=== PATIENT | female | born 1975 | race Caucasian/White ===

== ENCOUNTER 2021-06-10 20:52 | Emergency (ER) | payer OTHER, SELFPAY ==
--- NOTE | ~2021-06-10 | XR_ITS ---
EXAMINATION: XR CHEST CLINICAL INFORMATION: Shortness of breath COMPARISON: None TECHNIQUE: Frontal view of the chest was obtained. FINDINGS: Low lung volumes and bilateral perihilar streaky opacities.. No pleural effusion. No pneumothorax. Cardiomediastinal silhouette and pulmonary vascularity are within normal limits. No acute osseous abnormalities. XR/XR chest 1V IMPRESSION: Bilateral parahilar streaky opacities could represent an atypical pneumonitis
[2021-06-10 21:02] VITALS: PULSE 112; RESP 24; O2SAT 94; BMI 29.9
--- NOTE | 2021-06-10 21:02 | ED.ASTHMA ---
HPI - Asthma General Chief Complaint: Asthma Stated Complaint: Difficulty breathing Source: patient Mode of arrival: ambulatory Limitations: no limitations History of Present Illness HPI Narrative: 46-year-old female presents for asthma exacerbation. MD complaint: asthma attack Onset (ago): hour(s) (Within the hour of arrival) Severity: moderate Context: exercise Associated symptoms: dry cough and chest pain Asthma History: childhood onset Treatments Prior to Arrival: inhaled bronchodilator Related Data Current Asthma Therapy: inhaled bronchodilator Previous Rx's Medication Instructions Recorded azithromycin 250 mg tablet 250 mg PO DAILY 4 Days #4 tab 06/10/21 codeine 10 mg-guaifenesin 200 mg/5 10 ml PO Q4-6H PRN #473 ml 06/10/21 mL oral liquid Allergies Allergy/AdvReac Type Severity Reaction Status Date / Time No Known Allergies Allergy Unknown Unverified 03/23/20 15:49 Review of Systems Review of Systems: Constitutional: No Fever, No Chills ENT/Mouth: No Hoarseness, No sore throat, No Rhinorrhea Eyes: No Redness, No Discharge, No Vision Changes Cardiovascular: Positive Chest Pain, positive SOB, positive Dyspnea on Exertion, No Edema Respiratory: positive Cough, No Sputum, positive Wheezing, Gastrointestinal: No Nausea, No Vomiting, No Diarrhea, No abdominal Pain Genitourinary: No Dysuria, No Hematuria Musculoskeletal: No joint pain, No Myalgias Skin: No rash Neuro: No Weakness, No Numbness, No Headache Psych: No anxiety, depression Heme/Lymph: No Bruising, No Bleeding Endocrine: No Polyuria, No Polydipsia Yes all other systems are reviewed and are negative [facility] Past Medical History Attestation statement: The following information was validated with the patient. Source: old records reviewed Social History Social History Advance Directives: No Advance Directives Information Provided: Yes Physical Exam Vital Signs: Vital Signs: Last Vital Signs Pulse 117 H 06/10/21 23:28 Resp 21 H 06/10/21 23:28 BP 148/86 H 06/10/21 23:28 Pulse Ox 99 06/10/21 23:28 BMI result Body Mass Index 29.9 Appearance: Alert. Oriented X3. Moderate distress. Eyes: Pupils equal, round and reactive to light. ENT: Pharynx normal. Neck: Normal inspection. Neck supple. CVS: Tachycardic heart rate and rhythm. Pulses normal. Respiratory: Moderate respiratory distress tachypneic at 24 breaths per minute decreased lung sounds inspiratory and expiratory wheezing. Abdomen: Soft and nontender. Skin: Skin warm and dry. Normal skin color. Normal skin turgor. Extremities: No lower extremity edema. Gait well-balanced well coordinated. Neuro: No motor deficit. No sensory deficit. Cranial nerves 2-12 intact. Course Course Course Narrative: 46-year-old female presents with acute asthma exacerbation. Was dancing and drinking some alcohol when asthma attack started. Patient is unable to complete sentences, is an orthoptic position and has inspiratory and expiratory wheezing with poor air flow. Respiratory is at bedside order for magnesium, prednisone, and hour long albuterol neb completed. 11:05 p.m. Xopenex ordered for continued chest tightness. O2 sat 100%. RR 18-20. Patient able to complete sentences. 11:41 p.m. patient condition has improved. Plan of care is to discharge home with prednisone. Patient has pulmonology appointment on June 15. Patient verbalized understanding of and agrees to plan of care discharge home. MDM - Asthma Differential Diagnosis Differential diagnosis: Likely Acute exacerbation and Pneumonia Medical Records Attestation: I reviewed the patient's medical records. Lab Data Attestation: I reviewed the patient's lab results. Labs: Lab Results 06/10/21 Range/Units 21:32 Influenza Type A (PCR) NEGATIVE (Negative) Influenza Type B (PCR) NEGATIVE (Negative) RSV RNA Qual (PCR) NEGATIVE (Negative) SARS-CoV-2 RNA (RT-PCR) NEGATIVE (Negative) Imaging Data Chest x-ray: Attestation: I personally reviewed and interpreted this imaging study as follows: Radiologist's impression: EXAMINATION: XR CHEST CLINICAL INFORMATION: Shortness of breath COMPARISON: None TECHNIQUE: Frontal view of the chest was obtained. FINDINGS: Low lung volumes and bilateral perihilar streaky opacities.. No pleural effusion. No pneumothorax.? Cardiomediastinal silhouette and pulmonary vascularity are within normal limits. No acute osseous abnormalities. XR/XR chest 1V IMPRESSION: Bilateral parahilar streaky opacities could represent an atypical pneumonitis ECG Data Attestation: I personally reviewed and interpreted this ECG as follows: ECG interpretation date: 06/10/21 ECG interpretation time: :27 Interpretation: Vent. Rate : 112 BPM ? ? Atrial Rate : 112 BPM ?? P-R Int : 166 ms? QRS Dur : 084 ms ? ? QT Int : 350 ms ? ? ? P-R-T Axes : 049 -01 003 degrees ?? QTc Int : 477 ms ? Sinus tachycardia Minimal voltage criteria for LVH, may be normal variant ( R in aVL ) Nonspecific T wave abnormality Abnormal ECG No previous ECGs available Critical Care Time Critical Care Time Critical Care Time: Yes Total Critical Care Time: 45 Attestation: I have personally provided critical care time exclusive of time spent on separately billable procedures. Time includes review of laboratory data, radiology results, discussion with consultants, and monitoring for potential decompensation. Interventions were performed as documented. Discharge Plan Discharge Clinical Impression: Pneumonitis Asthma with acute exacerbation Qualifiers: Asthma severity: moderate Asthma persistence: persistent Qualified Code(s): J45.41 - Moderate persistent asthma with (acute) exacerbation Patient Disposition: Home, Self-Care Instructions: Asthma (ED), Community Acquired Pneumonia (ED) Additional Instructions: You were evaluated for asthma exacerbation. Chest x-ray shows pneumonitis. Please take azithromycin as directed. Follow-up with Pulmonary as scheduled on June 15, 2021. Please continue to use her inhalers as directed. Thank you for choosing this emergency department for evaluation. Please follow-up with primary care physician as needed. Return to the emergency department for any new, concerning, or worsening symptoms. Prescriptions: New codeine-guaifenesin 10-200 mg/5 mL liquid 10 ml PO Q4-6H PRN (Reason: cough) Qty: 473 RF: 0 azithromycin 250 mg tablet 250 mg PO DAILY 4 Days Qty: 4 RF: 0 Stand Alone Forms: Work/School Release
--- NOTE | 2021-06-10 21:03 | ECG_ITS ---
Test Reason : SOB Blood Pressure : / mmHG Vent. Rate : 112 BPM Atrial Rate : 112 BPM P-R Int : 166 ms QRS Dur : 084 ms QT Int : 350 ms P-R-T Axes : 049 -01 003 degrees QTc Int : 477 ms Sinus tachycardia Minimal voltage criteria for LVH, may be normal variant ( R in aVL ) Nonspecific T wave abnormality Abnormal ECG No previous ECGs available Referred By: Magaly Sandoval Electronically Signed By:Alfonso Snyder
[2021-06-10 21:10] VITALS: PULSE 101; O2SAT 99
[2021-06-10] MEDS: Albuterol Sulfate (0.083%) 2.5 MG/3 ML VIAL.NEB 10 MG INHALE (21:10)
[2021-06-10] MEDS: Magnesium Sulfate/H2O 2 GM/50 ML PIGGYBACK IV (21:13)
[2021-06-10] MEDS: methylPREDNISolone Sod Succ 125 MG/2 ML VIAL IVPUSH (21:13)
[2021-06-10 21:15] VITALS: BP 128/80; PULSE 116; RESP 17; O2SAT 100
[2021-06-10 22:14] LABS: Influenza A PCR NEGATIVE (Negative); Influenza B PCR NEGATIVE (Negative); Resp Syncy Virus RNA Qual PCR NEGATIVE (Negative); SARS COV2 PCR INHOUSE NEGATIVE (Negative)
[2021-06-10] MEDS: Morphine Sulfate 2 MG/ML CARTRIDGE 1 MG IVPUSH (22:29)
[2021-06-10 23:24] VITALS: PULSE 116; O2SAT 97
[2021-06-10 23:28] VITALS: BP 148/86; PULSE 117; RESP 21; O2SAT 99
[2021-06-11] MEDS: guaiFEN/Codeine SF 200/20/10ML 10 ML LIQUID PO (00:47)
[2021-06-11] MEDS: Azithromycin 500 MG TABLET PO (00:48)
== END 2021-06-11 01:24 | disposition home or self-care (01) ==
PROVIDERS: Nurse Practitioner Family; Emergency Provider Emergency Medicine
DX: J45.41 Moderate persistent asthma with (acute) exacerbation (principal); J18.9 Pneumonia, unspecified organism; Z20.822 Contact with and (suspected) exposure to COVID-19
CPT/HCPCS: 0241U; 36415; 71045; 93005; 94640; 94644; 96365; 96366; 96375; 99284; 99291; J2270; J2930; J3475